=== PATIENT | male | born 1940 | race Caucasian/White ===

== ENCOUNTER 2020-12-31 11:32 | Outpatient (REF) | payer MEDICARE, SELFPAY | END 2020-12-31 11:33 | disposition home or self-care (01) | LOC: HO.BBR 11:32 | PROVIDERS: PCP Internal Medicine; Visit Provider Internal Medicine Hematology & Oncology | DX: D75.1 Secondary polycythemia (principal) | CPT/HCPCS: 85014; 85018; 99195 ==

== ENCOUNTER 2021-05-26 08:46 | Outpatient (REF) | payer MEDICARE, SELFPAY | END 2021-05-26 08:47 | disposition home or self-care (01) | LOC: HO.BBR 08:46 | PROVIDERS: Visit Provider Internal Medicine Hematology & Oncology | DX: D75.1 Secondary polycythemia (principal) | CPT/HCPCS: 85014; 85018; 99195 ==